=== PATIENT | male | born 1985 | race American Indian/Alaskan Native ===

== ENCOUNTER 2022-03-04 14:55 | Emergency (ER) | payer OTHER ==
--- NOTE | 2022-03-04 17:50 | Emergency Department Report ---
ED Lower Extremity HPI - General Chief Complaint: Extremity Injury, Lower Stated Complaint: LT FOOT PAIN Source: patient Mode of arrival: Ambulatory Limitations: No Limitations - History of Present Illness Initial Comments: Patient is a 36-year-old -[place] male with a history of chronic gouty arthropathy who presents to the ED with complaint of acute onset persistent left foot pain after he accidentally stomped on a concrete when trying to avoid stepping on his dog 2 days ago. Patient states the pain has been constant and persistent and that bearing weight on the left foot makes the pain worse. Patient states that this injury occurred when he was already having left foot pain from acute gouty flare. Patient denies fall, nausea and vomiting, numbness and tingling or weakness of left foot, dizziness, syncope, chest pain, shortness of breath, abdominal pain, dizziness, fever and chills. MD Complaint: foot injury (LEFT FOOT PAIN), other (Injured left foot) -: days(s) (2) Injury: Foot: Left (left foot pain due to injury) Type of Injury: blunt Place: home Severity: severe Severity scale (0 -10): 8 Improves With: nothing Worsens With: weight bearing, movement, palpation Context: direct blow (stumped left foot against concrete), walking Associated Symptoms: swelling, able to partially bear weight. denies: numbness, tingling, unable to bear weight, ambulatory - Related Data Previous Rx's Medication Instructions Recorded Last Taken Type Colchicine [Colcrys] 0.6 mg PO BID #20 tab 04/03/16 Unknown Rx HYDROcodone/APAP 5-325 [[place] 1 each PO Q6HR PRN #15 tablet 04/03/16 Unknown Rx 5/325] Prednisone [predniSONE 10 mg 10 mg PO .TAPER #1 tab.ds.pk 04/03/16 Unknown Rx (6-Day Pack, 21 Tabs)] Baclofen 20 mg PO Q12H PRN #20 tab 03/04/22 Unknown Rx Ibuprofen [Motrin] 800 mg PO Q8HR PRN #30 tablet 03/04/22 Unknown Rx Allergies Allergy/AdvReac Type Severity Reaction Status Date / Time No Known Allergies Allergy Verified 04/03/16 10:59 ED Review of Systems ROS: Stated complaint: LT FOOT PAIN Other details as noted in HPI Constitutional: denies: chills, fever Eyes: denies: eye pain, eye discharge, vision change ENT: denies: ear pain, throat pain Respiratory: denies: cough, shortness of breath, wheezing Cardiovascular: denies: chest pain, palpitations Endocrine: no symptoms reported Gastrointestinal: denies: abdominal pain, nausea, diarrhea Genitourinary: denies: urgency, dysuria Musculoskeletal: arthralgia (left foot pain). denies: back pain, joint swelling Skin: denies: rash, lesions Neurological: denies: headache, weakness, paresthesias Psychiatric: denies: anxiety, depression Hematological/Lymphatic: denies: easy bleeding, easy bruising ED Past Medical Hx - Past Medical History Previous Medical History?: Yes Hx Psychiatric Treatment: Yes (anxiety depression) Additional medical history: Gout - Social History Smoking Status: Never Smoker Substance Use Type: Alcohol - Medications Home Medications: Home Medications Medication Instructions Recorded Confirmed Last Taken Type Colchicine [Colcrys] 0.6 mg PO BID #20 tab 04/03/16 Unknown Rx HYDROcodone/APAP 5-325 [[place] 1 each PO Q6HR PRN #15 tablet 04/03/16 Unknown Rx 5/325] Prednisone [predniSONE 10 mg 10 mg PO .TAPER #1 tab.ds.pk 04/03/16 Unknown Rx (6-Day Pack, 21 Tabs)] Baclofen 20 mg PO Q12H PRN #20 tab 03/04/22 Unknown Rx Ibuprofen [Motrin] 800 mg PO Q8HR PRN #30 tablet 03/04/22 Unknown Rx ED Physical Exam - General Limitations: No Limitations General appearance: alert, in no apparent distress - Head Head exam: Present: atraumatic, normocephalic, normal inspection - Eye Eye exam: Present: normal appearance, PERRL, EOMI Pupils: Present: normal accommodation - ENT ENT exam: Present: normal exam, normal orophraynx, mucous membranes moist, TM's normal bilaterally, normal external ear exam - Neck Neck exam: Present: normal inspection, full ROM. Absent: tenderness, lymphadenopathy - Respiratory Respiratory exam: Present: normal lung sounds bilaterally. Absent: respiratory distress, wheezes, rales, rhonchi, stridor, chest wall tenderness, accessory muscle use, decreased breath sounds, prolonged expiratory - Cardiovascular Cardiovascular Exam: Present: normal rhythm, tachycardia, normal heart sounds. Absent: systolic murmur, diastolic murmur, rubs, gallop - GI/Abdominal GI/Abdominal exam: Present: soft, normal bowel sounds. Absent: tenderness, guarding, rebound, hyperactive bowel sounds, hypoactive bowel sounds, organomegaly - Extremities Exam Extremities exam: Present: normal inspection, full ROM, tenderness (Palpable left foot tenderness with limited range of motion due to pain), normal capillary refill. Absent: pedal edema, joint swelling, calf tenderness - Back Exam Back exam: Present: normal inspection, full ROM. Absent: tenderness, CVA tenderness (R), CVA tenderness (L), muscle spasm, paraspinal tenderness, vertebral tenderness - Neurological Exam Neurological exam: Present: alert, oriented X3, CN II-XII intact, normal gait, reflexes normal - Psychiatric Psychiatric exam: Present: normal affect, normal mood - Skin Skin exam: Present: warm, dry, intact, normal color. Absent: rash ED Course Vital Signs 03/04/22 16:43 Temperature 98.0 F Pulse Rate 100 H Respiratory 18 Rate Blood Pressure 135/81 [Left] O2 Sat by Pulse 97 Oximetry ED Lower Extremity MDM - Radiology Data Radiology results: report reviewed, image reviewed [facility] [address] [place] [address] XRay Report Signed Patient: JAE GRIMES MR#: [id number] : 1985 Acct:[id number] Age/Sex: 36 / M ADM Date: 03/04/22 Loc: ED Attending Dr: Ordering Physician: KEATON CHAPMAN Date of Service: 03/04/22 Procedure(s): XR foot 3+V LT Accession Number(s): [id number] cc: KEATON CHAPMAN Fluoro Time In Minutes: LEFT FOOT 3 VIEWS INDICATION / CLINICAL INFORMATION: PAIN - INJURY. COMPARISON: None available. FINDINGS: BONES / JOINT(S): No acute fracture or subluxation. 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 SOFT TISSUES: No significant abnormality. ADDITIONAL FINDINGS: None. Signer Name: Freddie Hancock MD Signed: 03/04/2022 5:44 PM Workstation Name: [id number] Transcribed By: ES Dictated By: Freddie Hancock MD Electronically Authenticated By: Freddie Hancock MD Signed Date/Time: 03/04/221743 DD/ 1742 TD/TT: - Medical Decision Making This is a 36-year-old -[place] male with a history of chronic gouty arthropathy who presents to the ED with complaint of acute onset persistent left foot pain after he accidentally stomped on a concrete when trying to avoid stepping on his dog 2 days ago. Patient states the pain has been constant and persistent and that bearing weight on the left foot makes the pain worse. Patient states that this injury occurred when he was already having left foot pain from acute gouty flare. In the ED, patient is alert and oriented x3 and is not in any distress but appears to be in pain. Left foot x-ray showed no acute fractures or subluxations. Patient was discharged home on pain medications and muscle relaxants and advised to follow-up with his primary care physician in 7 to 10 days for reevaluation. Patient was advised to return to the ED immediately if symptoms get worse. - Differential Diagnosis Foot sprain; foot contusion; muscle strain; gouty arthropathy Critical care attestation.: If time is entered above; I have spent that time in minutes in the direct care of this critically ill patient, excluding procedure time. ED Disposition Clinical Impression: Sprain of left foot Qualifiers: Encounter type: initial encounter Qualified Code(s): S93.602A - Unspecified sprain of left foot, initial encounter Contusion of left foot including toes Qualifiers: Encounter type: initial encounter Qualified Code(s): S90.32XA - Contusion of left foot, initial encounter Disposition: HOME / SELF CARE / HOMELESS Is pt being admited?: No Does the pt Need Aspirin: No Condition: Stable Instructions: Foot Contusion, [id number], Crush Injury of the Foot, [id number] Additional Instructions: Left foot x-ray showed no acute fractures or subluxations. Your symptoms are likely musculoskeletal following the injuries sustained 2 days ago. In addition, your pain is worsened due to concurrent acute gouty arthropathy flar eup. Therefore take medications with food, drink plenty of fluids and follow-up with your primary care physician in 7 to 10 days for reevaluation. Return to the ED immediately if symptoms get worse. Prescriptions: Baclofen 20 mg PO Q12H PRN #20 tab PRN Reason: Muscle Spasm Ibuprofen [Motrin] 800 mg PO Q8HR PRN #30 tablet PRN Reason: Pain , Severe (7-10) Referrals: [facility] [Provider Group] - 3-5 Days Forms: Work/School Release Form(ED) Time of Disposition: 17:52 Print Language: SYRIAC
[2022-03-04 18:27] VITALS: BP 138/85
== END 2022-03-04 18:34 | disposition home or self-care (01) ==
LOC: ED 14:55
DX: S93.602A Unspecified sprain of left foot, initial encounter (principal); S90.32XA Contusion of left foot, initial encounter; F10.20 Alcohol dependence, uncomplicated; X58.XXXA Exposure to other specified factors, initial encounter; Y93.89 Activity, other specified; Y92.89 Other specified places as the place of occurrence of the external cause; Y99.8 Other external cause status
CPT/HCPCS: 99283